=== PATIENT | male | born 2000 | race African-American/Black ===

== ENCOUNTER 2020-11-30 10:30 | Outpatient (RCR) | payer OTHER, SELFPAY ==
--- NOTE | 2020-10-18 09:36 | PTOPEVAL ---
Thank you for referring Ubaldo Mckee to [facility].? The patient is scheduled to be seen for therapy? 2 x/week for 6-8 weeks. Please review, sign, date and return this plan of care PARAS. I agree with and certify that the following plan of care is medically necessary. Referring Physician Date Attending Provider: Terese Larsen, MD Diagnosis right shoulder sprain Onset July 2020 Cause shooting basketball Subjective Information He started having clavicle Query Text:As Reported By Patient/ pain after shooting the Family basketball. He felt the arm was off with numbness into all finger. After a few days ant shoulder pain with reaching He was seen by the MD last week with referral to therapy to address symptoms. Reports scapular pain with muscle soreness. Reports limitations with reaching motion in all directions in front and back of shoulder region. Significant limitations with reaching behind his back. He is able to play basketball, but continues to have pain. He has increased pain and strain with carrying objects. He is unable to sleep on right shoulder. Resistance training at home for UE and LE's. Does not work at this time. Diagnostic Tests X-Rays For This Problem Yes: no impairments Pain Assessment Self Report Pain Assessment Right Shoulder(s) Reported Pain Level 1 Pain Description Aching,Soreness,Tender on Palpation,Tightness Lowest Pain Intensity 1 Greatest Pain Intensity 9 Pain Aggravating Factors ADL's,Exercise/Activity, Lifting Pain Behaviors None Pain Score Upper Extremity Range of Motion Scapular/ Shoulder Range of Motion Right Scapular: Retraction Hypomobile Scapular: Protraction Hypomobile Scapular Downward Rotation Hypomobile Shoulder Flexion - Active 154 Shoulder Extension - Active 50 Shoulder Abduction - Active 140 Shoulder Medial Rotation - Active 50 Shoulder Lateral Rotation - Active 80 Scapular/Shoulder Range of Motion Pain Limitations
--- NOTE | 2020-10-28 10:47 | PCPTNOTE ---
Patient did not show up for scheduled appointment this date. Called pt who states he forgot about today's visit. Reminded him of his next visit.
--- NOTE | 2020-11-04 13:52 | PCPTNOTE ---
Patient did not show up for scheduled appointment this date. Called Pt, Pt stated to have forgotten about appointment. Reminded Pt of upcoming appointment on 11/07/20 @ 10:00.
--- NOTE | 2020-11-07 11:00 | PTOPEVAL ---
Thank you for referring Ubaldo Mckee to [facility] [place].? The patient is scheduled to be seen for therapy? 2x/week for 4 weeks. See summary below for progress with UE function and symptoms. Please review, sign, date and return this plan of care PARAS. I agree with and certify that the following plan of care is medically necessary. Referring Physician Date Attending Provider: Terese Larsen, Physical Therapy Progress Note Diagnosis right shoulder sprain Onset July 2020 Cause shooting basketball Subjective Information He denies any problems with Query Text:As Reported By Patient/ shooting the basketball. 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 Denies pain with reaching in front or overhead, but pain with reaching behind his back. He has pain with pulling motion. He has not returned to weight lifting. He reports his ant shoulder region was sore after the estim last treatment. Pain Assessment Self Report Pain Assessment Right Shoulder(s) Reported Pain Level 2 Pain Description Sharp,Tender on Palpation Pain Frequency Continuous Lowest Pain Intensity 2 Greatest Pain Intensity 9 Pain Aggravating Factors Exercise/Activity,Lifting Upper Extremity Range of Motion Scapular/ Shoulder Range of Motion Right Scapular: Retraction Normal Scapular: Protraction Normal Scapular Downward Rotation Normal Shoulder Flexion - Active 170 Shoulder Extension - Active 52 Shoulder Abduction - Active 148 Shoulder Medial Rotation - Active 55 Shoulder Medial Rotation - Active T10:Reach Behind the Back Shoulder Lateral Rotation - Active 90 Scapular/Shoulder Range of Motion Pain Limitations Scapular/Shoulder Range of Motion pain with abduction and int. Comments rotation at AC joint Upper Extremity Muscle Strength Testing Scapular/Shoulder Right Scapular Retraction - Middle Trapezius 2+ Poor + Scapular Retraction - Lower Trapezius 2+ Poor + Shoulder Flexion Strength 4- Good - Shoulder Extension Strength 5 Normal Shoulder Abduction Strength 4+ Good + Shoulder Medial Rotation Strength 5 Normal Shoulder Lateral Rotation Strength 4+ Good + Left Scapular Retraction - Middle Trapezius 2+ Poor + Scapular Retraction - Lower Trapezius 2+ Poor + Shoulder Flexion Strength 4+ Good + Shoulder Extension Strength 5 Normal
--- NOTE | 2020-11-09 09:38 | PCPTNOTE ---
Patient did not show up for scheduled appointment this date; reminder for next appointment on 11/14.
--- NOTE | 2020-11-28 09:20 | PCPTNOTE ---
Patient did not show up for scheduled appointment this date. Called pt who states he forgot about his appointment. Reminded him of his next appointment.
--- NOTE | 2020-11-30 11:30 | PTOPEVAL ---
Physical Therapy Progress Note Thank you for referring Ubaldo Mckee to [facility].?He has attended 9 therapy visits with 4 no show visits. He demonstrates improved shoulder motion, strength and UE function. He demonstrates indep with his HEP. Goals have been met or partially met at this time. Will hold chart open for 3 weeks for possible change in function or symptoms. Please review, sign, date and return this progress note/discharge note PARAS. I agree with and certify that the following plan of care is medically necessary. Referring Physician Date Admitting Provider: Attending Provider: Terese Larsen, Diagnosis right shoulder sprain Onset July 2020 Cause shooting basketball Subjective Information He denies any problems with Query Text:As Reported By Patient/ shooting the basketball in any Family position. He has any problems with bicep curls or rowing machine at the gym. Denies pain with reaching in all directions. C/o tightness with reaching behind his back. Pain Assessment Self Report Pain Assessment Right Shoulder(s) Reported Pain Level 0 Lowest Pain Intensity 0 Greatest Pain Intensity 0 Upper Extremity Range of Motion Scapular/ Shoulder Range of Motion Right Scapular: Retraction Normal Scapular: Protraction Normal Scapular Downward Rotation Normal Shoulder Flexion - Active 170 Shoulder Extension - Active 60 Shoulder Abduction - Active 160 Shoulder Medial Rotation - Active 74 Shoulder Medial Rotation - Active T10:Reach Behind the Back Shoulder Lateral Rotation - Active 74 Shoulder Lateral Rotation - Active T2:Reach Behind the Head Scapular/Shoulder Range of Motion Pain Limitations Scapular/Shoulder Range of Motion pain with rotation posterior Comments GH region Upper Extremity Muscle Strength Testing Scapular/Shoulder Right Scapular Retraction - Middle Trapezius 3+ Fair + Scapular Retraction - Lower Trapezius 3+ Fair + Shoulder Flexion Strength 4 Good Shoulder Extension Strength 5 Normal Shoulder Abduction Strength 5 Normal Shoulder Medial Rotation Strength 5 Normal Shoulder Lateral Rotation Strength 5 Normal Left Scapular Retraction - Middle Trapezius 3+ Fair + Scapular Retraction - Lower Trapezius 3+ Fair + PT Clinical Summary Pt referred to therapy due to right shoulder sprain. He has attended 9 therapy visits from 6/22/21 to 11/30/20 with 4 no show. Ubaldo demonstrates improved right shoulder motion in all
--- NOTE | 2020-12-05 11:18 | PCPTNOTE ---
Patient was still on schedule at 11:00 appointment this date however has been discharged per physical therapist. Will take remaining visits off the schedule.
== END 2020-12-07 15:38 | disposition home or self-care (01) ==
LOC: ANHPT 10:30
PROVIDERS: PCP Pediatrics; Visit Provider Internal Medicine
DX: S46.011D Strain of muscle(s) and tendon(s) of the rotator cuff of right shoulder, subsequent encounter (principal)
CPT/HCPCS: 97014; 97110; 97112; 97140; 97161; G0283